=== PATIENT | female | born 1985 | race African-American/Black ===

== ENCOUNTER 2020-09-11 02:53 | Inpatient (IN) | payer OTHER ==
[2020-09-11] VITALS (15 sets, daily range): BP systolic 92–142; BP diastolic 38–73; TEMP 97.6–98.7; Ht 152.4 cm; Wt 64.5 kg
[~2020-09-11] VITALS: Ht 152.4 cm; Wt 64.5 kg
[2020-09-11 03:33] LABS: PLATELET COUNT 306 K/uL (152-353)
[2020-09-11 04:10] LABS: POTASSIUM 3.4 mmol/L (3.6-5.2)
[2020-09-11] MEDS ORDERED: ACID CONTROL20 MG PO (09:39)
[2020-09-12] VITALS: BP 94/47; TEMP 98
[2020-09-12 04:00] VITALS: BP 106/53; TEMP 98
[2020-09-12 05:11] LABS: PLATELET COUNT 215 K/uL (152-353)
[2020-09-12 05:26] LABS: POTASSIUM 3.5 mmol/L (3.6-5.2)
[2020-09-12 08:00] VITALS: BP 109/79; TEMP 98.1
[2020-09-12 12:00] VITALS: BP 115/50; TEMP 97.6
[2020-09-12 16:00] VITALS: BP 113/63; TEMP 98.7
== END 2020-09-12 18:07 | disposition home or self-care (01) | DRG 419 ==
LOC: ED 02:53 → MED/SURG 06:25
PROVIDERS: Student in an Organized Health Care Education/Training Program; ATTEND Internal Medicine
PROC: 0FT44ZZ Resection of Gallbladder, Percutaneous Endoscopic Approach (ICD-10-PCS; principal; 2020-09-12)
DX: K80.12 Calculus of gallbladder with acute and chronic cholecystitis without obstruction (principal)
CPT/HCPCS: 36415; 80053; 81000; 81025; 83690; 85027; 87635; 93005; 96360; 96361; 96374; 96375; 99284; J0690; J1100; J1170; J2001; J2175; J2370; J2405; J2543; J2704; J3010; J3490; Q9963; U0003